=== PATIENT | male | born 1980 | race African-American/Black ===

== ENCOUNTER 2020-08-29 17:53 | Emergency (ER) | payer SELFPAY ==
[~2020-08-29 17:53] MED LIST: Iopamidol 370 76% 100 ML VIAL ONE
[2020-08-29] MEDS ORDERED: Morphine 4 MG/ML VIAL ONE (18:41)
[2020-08-29] MEDS ORDERED: Ondansetron PF 4 MG/2 ML Vial ONE (18:41)
[2020-08-29 18:45] LABS: #Basophils 0.1 thou/uL (0.0-0.2); #Lymphocytes 2.1 thou/uL (1.20-3.40); #Monocytes 0.6 thou/uL (0.11-0.59); #Neutrophils 6.6 thou/uL (1.40-6.50); %Basophils 0.8 % (0.0-1.0); %Eosinophils 0.3 % (0.0-10.0); %Lymphocytes 22.6 % (21.0-51.0); %Monocytes 6.6 % (0.0-10.0); %Neutrophils 69.8 % (42.0-75.0); Hemoglobin 14.2 g/dL (14.0-18.0); Mean Corpuscular HGB CONC 31.4 g/dL (32.0-36.0); Mean Corpuscular Volume 92.3 fL (78.0-98.0); Mean Platelet Volume 6.7 fL (7.4-10.4); Platelet Count 283 thou/uL (130-400); RBC Distribution Width 11.2 % (11.5-14.5); Red Blood Cell (RBC) Count 4.91 mill/uL (4.70-6.10); White Blood Cell (WBC) Count 9.4 thou/uL (4.8-10.8)
[2020-08-29 18:47] LABS: Bilirubin Negative (Negative); Blood, Urine Moderate (Negative); Clarity Clear (Clear); Glucose, Urine (Dipstick) Negative (Negative); Ketone, Urine Negative (Negative); Leukocyte Moderate (Negative); Nitrite Negative (Negative); Protein, Urine (Dipstick) Negative (Neg-Trace); Specific Gravity, Urine 1.025 (1.005-1.030); pH, Urine 5.5 (5.0-9.0)
[2020-08-29 18:53] LABS: Bacteria/HPF Rare-Few HPF (None Seen); Squamous Epithelial 0-3 HPF (0-3); WBC/HPF Greater Than 50 HPF (0-3)
[2020-08-29 19:03] LABS: ALT (SGPT) 36 U/L (8-55); AST (SGOT) 18 U/L (5-34); Albumin 4.4 g/dL (3.5-5.0); Alkaline Phosphatase 76 U/L (40-110); Anion Gap 16 mmol/L (10-20); BUN (Urea Nitrogen) 11 mg/dL (8.9-20.6); Bilirubin, Total 0.4 mg/dL (0.2-1.2); Calc. Creatinine Clearance 0 mL/min (70-130); Calcium 9.7 mg/dL (7.8-10.44); Carbon Dioxide 28 mmol/L (22-29); Chloride 98 mmol/L (98-107); Estimated GFR-MDRD 74; Globulin 4.2 g/dL (2.4-3.5); Glucose 95 mg/dL (70-105); Potassium 3.4 mmol/L (3.5-5.1); Protein, Total 8.6 g/dL (6.0-8.3); Sodium 139 mmol/L (136-145)
--- NOTE | 2020-08-29 21:54 | CT ---
CT ABDOMEN WITH CONTRAST CT PELVIS WITH CONTRAST: DATE: 08/29/2020 HISTORY: 40-year-old male with right lower quadrant and right groin pain. COMPARISON: None TECHNIQUE: IV injection of iodinated contrast media: administered. Oral contrast media:Administered FINDINGS: Lack of visceral fat makes it somewhat difficult to identify the appendix. Throughout the inguinal canal, there is a vertically elongated mass with caliber of approximately 20 x 25 mm, containing low attenuation fluid filled lumen, surrounded by thick enhancing ludwig, which is surrounded by severe fat stranding representing edema. The superior portion of it appears to conne ct with contents of the right lower quadrant abdominal cavity, and this perhaps represents a severely infected inflamed appendix. Normal bladder, abdominal aorta, kidneys, pancreas, liver, and spleen. IMPRESSION: Somewhat severe infection throughout right inguinal canal, which appears due to appendicitis involvin g inguinal hernia consisting solely of the appendix.
[2020-08-29] MEDS ORDERED: Sodium Chloride 0.9% 1,000 ML ONE (22:05)
[2020-08-29] MEDS ORDERED: Piperacillin/Tazobactam 4.5 GM VIAL ONE (22:05)
[2020-08-29] MEDS ORDERED: Sodium Chloride 0.9% 100 ML ONE (22:05)
== END 2020-08-29 23:26 | disposition short-term general hospital (02) ==
LOC: NAV ERS 17:53
DX: K35.80 Unspecified acute appendicitis (principal); K40.90 Unilateral inguinal hernia, without obstruction or gangrene, not specified as recurrent; Z87.891 Personal history of nicotine dependence
CPT/HCPCS: 74177; 80053; 81003; 81015; 83605; 85025; 96365; 96375; J2270; J2405; J2543; J3490; J7050; Q9967